=== PATIENT | male | born 1960 | race American Indian/Alaskan Native ===

== ENCOUNTER 2020-08-29 18:35 | Emergency (ER) | payer SELFPAY ==
[2020-08-29 18:48] VITALS: BP 123/78
--- NOTE | 2020-08-29 21:12 | XRay Report ---
LEFT KNEE 4 VIEW(S) INDICATION / CLINICAL INFORMATION: knee pain. "popped out" COMPARISON: None available. FINDINGS: BONES / JOINT(S): No acute fracture or subluxation. There is mild tricompartmental degenerative arthr osis. Fragmentation of the tibial tubercle is compatible with chronic Spearfish-Schlatter disease. SOFT TISSUES: No significant abnormality. No large joint effusion. ADDITIONAL FINDINGS: None. Signer Name: Osmin Pink MD Signed: 08/29/2020 9:08 PM Workstation Name: [id number]
--- NOTE | 2020-08-29 22:36 | Emergency Department Report ---
ED Lower Extremity HPI - General Chief Complaint: Extremity Injury, Lower Stated Complaint: POSSIBLE DISLOATED LEFT KNEE Time Seen by Provider: 08/29/20 22:24 Source: patient Mode of arrival: Wheelchair Limitations: Physical Limitation - History of Present Illness Initial Comments: 60-year-old [employer] complaining of a long history of left knee pain with resulting episodes of the knee popping out of place and him spontaneously relocated MD Complaint: knee injury -: Sudden, days(s) Injury: Knee: Left Type of Injury: inversion Place: work Severity: mild, moderate Worsens With: weight bearing, movement, palpation Associated Symptoms: snap/pop sensation, unable to bear weight, other - Related Data Previous Rx's Medication Instructions Recorded Last Taken Type Ketorolac [Toradol] 10 mg PO Q6H PRN #14 tablet 08/29/20 Unknown Rx Allergies Allergy/AdvReac Type Severity Reaction Status Date / Time No Known Allergies Allergy Verified 08/29/20 18:46 ED Review of Systems ROS: Stated complaint: POSSIBLE DISLOATED LEFT KNEE Other details as noted in HPI Comment: All other systems reviewed and negative ED Past Medical Hx - Past Medical History Previous Medical History?: No - Surgical History Past Surgical History?: No - Social History Smoking Status: Never Smoker Substance Use Type: Marijuana - Medications Home Medications: Home Medications Medication Instructions Recorded Confirmed Last Taken Type Ketorolac [Toradol] 10 mg PO Q6H PRN #14 tablet 08/29/20 Unknown Rx ED Physical Exam - General Limitations: Physical Limitation General appearance: alert, in no apparent distress - Head Head exam: Present: atraumatic, normocephalic - Eye Eye exam: Present: normal appearance, PERRL, EOMI Pupils: Present: normal accommodation - ENT ENT exam: Present: mucous membranes moist - Neck Neck exam: Present: normal inspection - Respiratory Respiratory exam: Present: normal lung sounds bilaterally. Absent: respiratory distress - Cardiovascular Cardiovascular Exam: Present: regular rate, normal rhythm. Absent: systolic murmur, diastolic murmur, rubs, gallop - GI/Abdominal GI/Abdominal exam: Present: soft, normal bowel sounds - Rectal Rectal exam: Present: deferred - Extremities Exam Extremities exam: Present: normal inspection - Expanded Lower Extremity Exam Left Knee exam: Present: tenderness (Primary to the posterior knee area but no popliteal masses noted. There is some the hamstring insertion site region. The patella appears to be intact and stable), swelling, pain/laxity with varus. Absent: ecchymosis, deformity, erythema, effusion Lower Leg exam: Present: normal inspection, full ROM Ankle exam: Present: normal inspection Neuro vascular tendon exam: Present: no vascular compromise. Absent: foot drop - Back Exam Back exam: Present: normal inspection - Neurological Exam Neurological exam: Present: alert, oriented X3 - Psychiatric Psychiatric exam: Present: normal affect, normal mood - Skin Skin exam: Present: warm, dry, intact, normal color. Absent: rash ED Course Vital Signs 08/29/20 18:45 Temperature 98.9 F Pulse Rate 76 Respiratory 20 Rate Blood Pressure 123/78 O2 Sat by Pulse 96 Oximetry Critical care attestation.: If time is entered above; I have spent that time in minutes in the direct care of this critically ill patient, excluding procedure time. ED Disposition Clinical Impression: Knee pain, Knee internal derangement Disposition: - TO HOME OR SELFCARE Is pt being admited?: No Does the pt Need Aspirin: No Condition: Stable Instructions: Acute Knee Pain, Adult, How to Use Cold Therapy, [id number], Musculoskeletal Pain, How to Use a Knee Brace, Joint Pain, [id number] Prescriptions: Ketorolac [Toradol] 10 mg PO Q6H PRN #14 tablet PRN Reason: Pain Referrals: [facility] [Provider Group] - 3-5 Days
== END 2020-08-29 22:35 | disposition home or self-care (01) ==
LOC: ED 18:35
DX: M25.562 Pain in left knee (principal); Z79.899 Other long term (current) drug therapy
CPT/HCPCS: 99283